=== PATIENT | female | born 1985 | race Caucasian/White ===

== ENCOUNTER 2016-08-30 10:05 | Emergency (ER) | payer OTHER ==
--- NOTE | 2016-08-30 10:49 | ED Physician Documentation ---
Upper Respiratory Symptoms - HISTORIAN Historian: patient - HPI Stated Complaint: cough Chief Complaint: Cough/ Upper Respiratory Onset: days ago Duration: constant Severity: mild Associated Symptoms: runny nose. denies: fever, chills Worsened by Deep Breath: No Further Comments: yes - ROS CONST/EYES: denies: weakness CVS/RESP: none - PAST HX Lung Disease: none PE Risk Factors: none Allergies/Adverse Reactions: Allergies Allergy/AdvReac Type Severity Reaction Status Date / Time No Known Allergies Allergy Verified 11/12/14 16:18 Home Medications: Ambulatory Orders Medication Instructions Recorded Albuterol Sulfate [Proair HFA] 2 inh IH Q4H PRN #1 [email or web address] 11/12/14 Albuterol Sulfate [Ventolin HFN] 2.5 mg NEB Q4 PRN #1 bottle 11/12/14 Fluticasone Propionate [Flonase 2 spray NS DAILY #1 bottle 11/12/14 Nasal [place]] predniSONE [Prednisone] 50 mg PO DAILY #5 tablet 11/12/14 - SOCIAL HX Smoking History: quit greater than 1 year Alcohol Use: none Drug Use: none - FAMILY HX Family History: none - VITAL SIGNS Vital Signs: Vital Signs Temp Pulse Resp BP Pulse Ox 158/72 11/12/14 18:35 - REVIEWED ASSESSMENTS Nursing Assessment Reviewed: Yes Vitals Reviewed: Yes ED Results Lab/Radiology - Radiology Radiology Impressions: 2 view CXR: no acute process identified - Orders Orders: ED Orders Category Date Time Status CHEST P.A.&LAT 2 VIEWS [RAD] Stat Exams 08/30/16 Ordered Upper Respiratory Symptoms - EXAM General Appearance: no acute distress EENT: eyes nml inspection, nml ENT inspection, lids & conjunct. nml Neck: normal inspection Respiratory: no resp. distress, breath sounds nml, no pain on inspiration Abdomen: non-tender CVS: reg rate & rhythm Skin: color nml, no rash Extremities: non-tender Neuro/Psych: oriented x3, neuro intact, mood/affect nml Discharge Clincal Impression: Viral URI with cough Home Medications: Ambulatory Orders Albuterol Sulfate [Proair HFA] 2 inh IH Q4H PRN #1 hfa.[email or web address] 11/12/14 Albuterol Sulfate [Ventolin HFN] 2.5 mg NEB Q4 PRN #1 bottle 11/12/14 Fluticasone Propionate [Flonase Nasal [place]] 2 spray NS DAILY #1 bottle predniSONE [Prednisone] 50 mg PO DAILY #5 tablet 11/12/14 Comments: You have a viral upper respiratory infection Take the cough medication prescription provided to you Hydrate If you develop a fever >101F, follow up with PCP of choice Condition: Good Disposition: 01 HOME, SELF-CARE Decision to Admit: NO Decision Time: 12:14
--- NOTE | 2016-08-30 15:49 | Diagnostic Imaging Report ---
[facility] [id number] [facility] [id number] Report Submission Date: Aug 30, 2016 11:52:01 AM CERTIFIER Patient Study Name: ANNIKA PATE Date: Aug 30, 2016 11:20:46 AM CERTIFIER Modality Type: CR Gender: F Description: CHEST : 89 Institution: [facility] Physician: RAYMUNDO CRUZ PA and lateral chest CLINICAL HISTORY: Cough for 6 weeks Technique PA and lateral upright FINDINGS: The lung estrada are clear. The heart mediastinal structures are unremarkable. There is no pleural effusion. The bony thorax is unremarkable. IMPRESSION: No acute pulmonary disease Electronically signed on Aug 30, 2016 11:52:01 AM CERTIFIER by: Yuri SANTOS
[2016-08-30 16:32] VITALS: BP 131/75
== END 2016-08-30 12:00 | disposition home or self-care (01) ==
LOC: ED 10:05
DX: J06.9 Acute upper respiratory infection, unspecified (principal); R05 Cough
CPT/HCPCS: 71020; 99283

== ENCOUNTER 2017-01-19 22:15 | Emergency (ER) | payer OTHER ==
[2017-01-19 22:29] VITALS: BP 130/71
[2017-01-19] MEDS ORDERED: methylPREDNISolone SOD SUCC 125 MG/2 ML VIAL ONE (22:38)
[2017-01-19] MEDS: methylPREDNISolone SOD SUCC 125 MG/2 ML VIAL IM ONE (22:40)
--- NOTE | 2017-01-19 22:43 | ED Physician Documentation ---
Lower Extremity Problem - HISTORIAN Historian: patient - HPI Stated Complaint: left heal pain Chief Complaint: Lower Extremity Problem Additional Information: pain in Left heel x 6-8 weeks, works on her feet on hard surface, wearing sandals now. Pain is heel and distal achilles Location of Injury: L foot Onset: other (6-8 weeks) Timing: still present, pain intermittent Duration: intermittent episodes Recent Injury: No Severity: mild Quality: pain Exacerbated By: walking Relieved By: nothing Associated Symptoms: denies: chest pain Further Comments: no - ROS CONST: no problems MS/SKIN/LYMPH: none CVS/RESP: none GI/: none EYES/ENT: none NERUO/PSYCH: denies: headache - PAST HX Past History: none PE Risk Factors: none Other History: denies: aortic aneurysm Surgeries/Procedures: none Allergies/Adverse Reactions: Allergies Allergy/AdvReac Type Severity Reaction Status Date / Time No Known Allergies Allergy Verified 01/19/17 22:22 Home Medications: Ambulatory Orders Medication Instructions Recorded NK [NK] 01/19/17 - SOCIAL HX Smoking History: non-smoker Alcohol Use: none Drug Use: none - FAMILY HX Family History: none - VITAL SIGNS Vital Signs: Vital Signs Temp Pulse Resp BP Pulse Ox 98.0 F 91 H 16 130/71 99 01/19/17 22:23 01/19/17 22:23 01/19/17 22:23 01/19/17 22:23 01/19/17 22:23 - REVIEWED ASSESSMENTS Nursing Assessment Reviewed: Yes Vitals Reviewed: Yes ED Results Lab/Radiology - Orders Orders: ED Orders Category Date Time Status methylPREDNISolone SOD SUCC [Solu-MEDROL] Med 01/19/17 22:38 Once 125 mg IM NOW ONE Lower Extremity Problem - EXAM General Appearance: no distress Hips: bilateral hip: non-tender, normal inspection Legs: bilateral: non-tender, normal inspection Knees: bilateral: non-tender, normal inspection Ankle: bilateral: non-tender, normal inspection Foot: left foot: soft tissue tenderness Neuro/Tendon: normal motor functions, normal tendon functions EENT: ENT inspection normal RESPIRATORY: no resp distress JOINT: joints nml VASCULAR: no vascular compromise NEURO/PSYCH: oriented X3 SKIN: warm/dry, normal color BACK: normal inspection Discharge Clincal Impression: Bone spur of foot Referrals: Primary Doctor,No [Primary Care Provider] - 2 Days Home Medications: Ambulatory Orders NK [NK] 01/19/17 Condition: Good Disposition: 01 HOME, SELF-CARE Decision to Admit: NO Date of Decison to Admit: 01/19/17 Decision Time: 22:42
== END 2017-01-19 22:50 | disposition home or self-care (01) ==
LOC: ED 22:15
DX: M77.32 Calcaneal spur, left foot (principal); M79.672 Pain in left foot
CPT/HCPCS: J2930 ×2; 96372; 99283

== ENCOUNTER 2017-03-27 02:16 | Emergency (ER) | payer OTHER ==
[2017-03-27] MEDS ORDERED: AZITHROMYCIN 250 MG TABLET PO ONE (02:36)
[2017-03-27] MEDS: AZITHROMYCIN 250 MG TABLET PO ONE (02:38)
--- NOTE | 2017-03-27 02:45 | ED Physician Documentation ---
Upper Respiratory Symptoms - HISTORIAN Historian: patient, spouse - HPI Stated Complaint: COUGH/CONGESTION X 2 WEEKS Chief Complaint: Cough/ Upper Respiratory Additional Information: has been working at [employer] very damp enviornment developed sob cough prod mucoid fever weakness fatigue Onset: days ago (10) Duration: intermittent episodes Context: same sx Severity: moderate Associated Symptoms: fever, chills, sweating, sinus pain, sore throat, hoarseness, chest pain, productive cough, shortness of breath, hurts to breathe Worsened by Deep Breath: Yes - ROS CONST/EYES: weakness LYMPH: denies: leg swelling, rash GI/: none NEURO/PSYCH: denies: fainting MS/SKIN: muscle aches. denies: joint pain - PAST HX Lung Disease: none PE Risk Factors: none Surgeries/Procedures: BLT Allergies/Adverse Reactions: Allergies Allergy/AdvReac Type Severity Reaction Status Date / Time No Known Allergies Allergy Verified 03/27/17 02:27 Home Medications: Ambulatory Orders Medication Instructions Recorded Azithromycin 500 mg PO D #5 tablet 03/27/17 - SOCIAL HX Smoking History: cigarettes Alcohol Use: none Drug Use: none - FAMILY HX Family History: no significant history - VITAL SIGNS Vital Signs: Vital Signs Temp Pulse Resp BP Pulse Ox 98.4 F 95 H 20 129/79 96 03/27/17 02:20 03/27/17 02:20 03/27/17 02:20 03/27/17 02:20 03/27/17 02:20 - REVIEWED ASSESSMENTS Nursing Assessment Reviewed: Yes Vitals Reviewed: Yes ED Results Lab/Radiology - Orders Orders: ED Orders Category Date Time Status Azithromycin [Zithromax] Med 03/27/17 02:36 Discontinued 500 mg PO .STK-MED ONE Azithromycin [Zithromax] Med 03/27/17 02:36 Discontinued 500 mg PO NOW ONE Upper Respiratory Symptoms - EXAM General Appearance: moderate distress EENT: eyes nml inspection, nml ENT inspection, conjunctival erythema, TM dullness (R), pharyngeal erythema Neck: normal inspection Respiratory: no pain on inspiration, speaks full sentences, prolonged expirations, decreased air movement, wheezes, rales, rhonchi. No: breath sounds nml Abdomen: non-tender CVS: reg rate & rhythm, heart sounds normal Skin: color nml, no rash, warm,dry. No: cyanosis, diaphoresis Extremities: non-tender, normal range of motion Neuro/Psych: oriented x3, neuro intact, mood/affect nml Discharge Clincal Impression: acute bronchitis, nicotine abuse Prescriptions: Azithromycin 500 mg PO D #5 tablet Referrals: Primary Doctor,No [Primary Care Provider] - 2 Days Home Medications: Ambulatory Orders Azithromycin 500 mg PO D #5 tablet 03/27/17 Condition: Good Disposition: 01 HOME, SELF-CARE Decision to Admit: NO (n) Decision Time: 02:48
[2017-03-27 06:57] VITALS: BP 129/79
== END 2017-03-27 02:40 | disposition home or self-care (01) ==
LOC: ED 02:16
DX: J20.9 Acute bronchitis, unspecified (principal); Z72.0 Tobacco use
CPT/HCPCS: 99283

== ENCOUNTER 2018-08-27 22:47 | Emergency (ER) | payer BC ==
--- NOTE | 2018-08-27 23:35 | ED Physician Documentation ---
General Adult - HISTORIAN Historian: patient - HPI Stated Complaint: sore throat/body aches Chief Complaint: General Adult Additional Information: Three days feverish, with body aches. Began with sore throat. No rash or stomach ache, May be coughing more than usual (smoker). Body aches. No treatment attempted. No flu shot. Temp 100.4 in ER. - ROS CONST: fever - PAST HX Past History: none Allergies/Adverse Reactions: Allergies Allergy/AdvReac Type Severity Reaction Status Date / Time No Known Allergies Allergy Verified 08/27/18 23:07 Home Medications: Ambulatory Orders Medication Instructions Recorded NK 08/27/18 - SOCIAL HX Smoking History: cigarettes - FAMILY HX Family History: No (no signif) - VITAL SIGNS Vital Signs: Vital Signs Temp Pulse Resp BP Pulse Ox 100.5 F H 108 H 18 118/66 95 08/27/18 22:57 08/27/18 22:57 08/27/18 22:57 08/27/18 22:57 08/27/18 22:57 - REVIEWED ASSESSMENTS Nursing Assessment Reviewed: Yes Vitals Reviewed: Yes Progress - Progress Progress: Rapi strep positive. Influenza negative. ED Results Lab/Radiology - Orders Orders: ED Orders Category Date Time Status INFLUENZA A&B Stat Lab 08/27/18 Uncollected Rapid Strep [GRP A STREP SCREEN] Stat Lab 08/27/18 Ordered General Adult Physical Exam - PHYSICAL EXAM GENERAL APPEARANCE: obese, unwashed EENT: eye inspection normal, TM's nml, pharyngeal erythema (and exudate) NECK: normal inspection, supple. No: lymphadenopathy RESPIRATORY: no resp distress, breath sounds normal, other (occasional congested sounding cough) CVS: reg rate & rhythm, heart sounds normal, no murmur BACK: normal inspection SKIN: warm/dry, normal color EXTREMITIES: no evidence of injury NEURO: CN's nml as tested, motor nml, sensation nml, cognition normal Discharge Clincal Impression: Strep throat Referrals: Primary Doctor,No [Primary Care Provider] - 2 Days Condition: Fair Disposition: HOME, SELF-CARE Decision to Admit: NO Decision Time: 23:52
[2018-08-27] MEDS ORDERED: BENZATHINE IM ONE (23:44)
[2018-08-27] MEDS ORDERED: PENICILLIN IM ONE (23:44)
[2018-08-27] MEDS ORDERED: DISP SYRIN IM ONE (23:44)
[2018-08-28 00:01] VITALS: BP 123/76
== END 2018-08-27 23:57 | disposition home or self-care (01) ==
LOC: ED 22:47
DX: J02.0 Streptococcal pharyngitis (principal); B95.0 Streptococcus, group A, as the cause of diseases classified elsewhere; Z72.0 Tobacco use
CPT/HCPCS: 87400; 87880; 96372; 99282; 99284; J0561